=== PATIENT | female | born 1940 | race Two or more races ===

== ENCOUNTER 2020-04-01 17:24 | Observation (INO) | payer MEDICARE ==
[~2020-04-01] VITALS: Ht 165.1 cm; Wt 70.5 kg
[2020-04-01 18:31] VITALS: Ht 165.1 cm; Wt 70.5 kg
[2020-04-02] MEDS ORDERED: CATAPRES0.2 MG PO (08:38)
[2020-04-02] MEDS ORDERED: PROCHLORPERAZ5 MG/M1 PO (08:43)
[2020-04-02] MEDS ORDERED: HYDRALAZINE HC100 MG PO (08:43)
[2020-04-02] MEDS ORDERED: PROCARDIA XL60 MG PO (08:44)
[2020-04-02] MEDS ORDERED: PROTONIX40 MG PO (08:44)
[2020-04-02] MEDS ORDERED: HYDROCODON-ACE1 EAC7 PO (08:51)
[2020-04-02 09:48] VITALS: BP 186/65
== END 2020-04-02 12:00 | disposition home or self-care (01) ==
LOC: OBSVTIME 17:24 → D.M2 17:24
PROVIDERS: ADMIT Internal Medicine Nephrology; ATTEND Internal Medicine Nephrology
DX: L76.32 Postprocedural hematoma of skin and subcutaneous tissue following other procedure (principal); Y83.8 Other surgical procedures as the cause of abnormal reaction of the patient, or of later complication, without mention of misadventure at the time of the procedure; I12.0 Hypertensive chronic kidney disease with stage 5 chronic kidney disease or end stage renal disease; N18.6 End stage renal disease

== ENCOUNTER 2020-04-06 18:19 | Inpatient (IN) | payer MEDICARE ==
[~2020-04-06] VITALS: Ht 152.4 cm; Wt 64.1 kg
[~2020-04-06 18:19] MED LIST: CATAPRES0.2 MG PO; HYDRALAZINE HC100 MG PO; HYDROCODON-ACE1 EAC7 PO; PROCARDIA XL60 MG PO; PROCHLORPERAZ5 MG/M1 PO; PROTONIX40 MG PO
[2020-04-06 19:07] VITALS: BP 185/86
[2020-04-06 20:11] LABS: HEMATOCRIT 31.8 % (36.0-48.0); HEMOGLOBIN 10.2 g/dL (12-16); MCH 30.9 pg (26.0-34.0); MCHC 32.1 g/dL (31.0-37.0); MCV 96.4 fL (80.0-100.0); MEAN PLATELET VOLUME 9.6 fL (7.4-10.4); RBC 3.3 10x6/uL (4.00-5.40)
[2020-04-06 20:33] LABS: APTT 30.7 SECONDS (22.8-39.4); INR 1.04 (0.85-1.17); PROTIME 13.5 SECONDS (11.6-15.0)
--- NOTE | 2020-04-06 20:46 | NUR ---
PT ARRIVED TO FLOOR VIA STRECHER A/O X4. RR EVEN AND UNLABORED. PT UP WITH ASSIST TO BATHROOM. PT SPEAKS NO [place]. WILL GET TRANSLATER PHONE. NO S/S OF DISTRESS AT THIS TIME. BED LOW LUCIANA ALARM IN PLACE. VITALS STABLE. WILL CONTINUE TO MONITOR.
--- NOTE | 2020-04-06 22:41 | NUR ---
TRIED TO CALL PT'S [facility] FOR HISTORY. NO ANSWER LEFT MESSAGE. WILL TRY BACK.
[2020-04-07 00:24] VITALS: BP 208/81
--- NOTE | 2020-04-07 01:16 | NUR ---
2234- PT HEP DRIP STARTED AT 13ML/HR. LAC IV DC'D FFA 20G IV ESTABLISHED. PTT ORDER PUT IN FOR 399. PT VITALS STABLE NO S/S OF DISTRESS AT THIS TIME. BED LOW CALL LIGHT WITHIN REACH, LUCIANA ALSRM ON. WILL CONTINUE TO MONITOR.
[2020-04-07 02:18] VITALS: Ht 152.4 cm; Wt 64.1 kg
[2020-04-07 05:11] VITALS: BP 210/81
--- NOTE | 2020-04-07 05:55 | NUR ---
PT A/O X4. FSBS-73 GAVE PT APPLE JUICE WITH 1 PACKET OF SUGAR. WILL CONTINUE TO MONITOR.
--- NOTE | 2020-04-07 06:30 | NUR ---
CALLED LAB ABOUT PTT THAT WAS SCHEDULED AT 0400. JAVA ENGINEER JANUARY STATES IT'S RUNNING.
[2020-04-07 08:25] VITALS: BP 221/82
--- NOTE | 2020-04-07 11:25 | NUR ---
UNABLE TO AUSCULTATE FISTULA BRUIT BUT DOPPLER AT BRACHIAL, ANTICUBITAL, AND RADIAL DONE AND AREA MARKED. WILL CONT TO MONITOR.
[2020-04-07 12:37] VITALS: BP 209/83
[2020-04-07 16:20] VITALS: BP 163/62
--- NOTE | 2020-04-07 18:05 | NUR ---
PT NOT GOING HOME NOW AFTER CALL BACK FROM [facility] WITH [facility]. WILL STAY THE NIGHT AND DIALYSIS IN MORNING THEN PROBABLY HOME. FAMILY ON PHONE WITH UPDATE AND ABLE TO TRANSLATE TO PT PLAN OF CARE.
[2020-04-07 20:00] VITALS: BP 155/54
--- NOTE | 2020-04-07 20:00 | NUR ---
spoke with dr. villafana about pt being discharged tonight, pt to stay tonight and dialysize tomorrow morning before discharge.
[2020-04-08] VITALS: BP 132/52
[2020-04-08 04:00] VITALS: BP 161/61
[2020-04-08 05:03] LABS: HEMATOCRIT 29.9 % (36.0-48.0); HEMOGLOBIN 9.9 g/dL (12-16); LYMPHOCYTES 15.4 % (15-50); MCH 31.7 pg (26.0-34.0); MCHC 33.1 g/dL (31.0-37.0); MCV 95.8 fL (80.0-100.0); MEAN PLATELET VOLUME 9.5 fL (7.4-10.4); NEUTROPHILS 76.8 % (40-80); PLATELET COUNT 182 10x3/uL (130-400); RBC 3.12 10x6/uL (4.00-5.40); RDW 11.9 % (11.5-14.5); WBC 5.4 10x3/uL (4.8-10.8)
[2020-04-08 05:07] LABS: ANION GAP 8.4 mmol/L (8-16); CALCIUM 7.6 mg/dL (8.5-10.1); CARBON DIOXIDE 29.7 mmol/L (21.0-32.0); POTASSIUM - SERUM 5.1 mmol/L (3.5-5.1)
[2020-04-08 09:00] VITALS: BP 192/65
== END 2020-04-08 14:35 | disposition home or self-care (01) | DRG 919 ==
LOC: D.ER 18:19 → D.M2 19:17
PROVIDERS: Family Medicine; ADMIT Internal Medicine Nephrology; ATTEND Internal Medicine Nephrology
PROC: 5A1D70Z Performance of Urinary Filtration, Intermittent, Less than 6 Hours Per Day (ICD-10-PCS; principal; 2020-04-08)
DX: L76.32 Postprocedural hematoma of skin and subcutaneous tissue following other procedure (principal); N18.6 End stage renal disease; I12.0 Hypertensive chronic kidney disease with stage 5 chronic kidney disease or end stage renal disease; Y83.8 Other surgical procedures as the cause of abnormal reaction of the patient, or of later complication, without mention of misadventure at the time of the procedure; E11.22 Type 2 diabetes mellitus with diabetic chronic kidney disease; I25.10 Atherosclerotic heart disease of native coronary artery without angina pectoris; F03.90 Unspecified dementia, unspecified severity, without behavioral disturbance, psychotic disturbance, mood disturbance, and anxiety

== ENCOUNTER 2020-06-18 08:28 | Day surgery (SDC) | payer MEDICARE ==
[~2020-06-18] VITALS: Ht 152.4 cm; Wt 62.1 kg
[2020-06-18 09:07] LABS: BASOPHILS 0.6 % (0-2); EOSINOPHILS 7.9 % (0-7); HEMATOCRIT 42.6 % (36.0-48.0); HEMOGLOBIN 13.9 g/dL (12-16); IMMATURE GRANULOCYTES 0.8 % (0-5); LYMPHOCYTES 14.8 % (15-50); MCH 32.9 pg (26.0-34.0); MCHC 32.6 g/dL (31.0-37.0); MCV 100.7 fL (80.0-100.0); MEAN PLATELET VOLUME 9.7 fL (7.4-10.4); MONOCYTES 7.3 % (2-11); NEUTROPHILS 68.6 % (40-80); PLATELET COUNT 201 10x3/uL (130-400); RBC 4.23 10x6/uL (4.00-5.40); RDW 13.6 % (11.5-14.5); WBC 5.3 10x3/uL (4.8-10.8)
[2020-06-18 09:13] LABS: ANION GAP 11.3 mmol/L (8-16); CALCIUM 7.8 mg/dL (8.5-10.1); CARBON DIOXIDE 26.3 mmol/L (21.0-32.0); POTASSIUM - SERUM 4.6 mmol/L (3.5-5.1)
[2020-06-18 09:23] LABS: INR 0.99 (0.85-1.17); PROTIME 13.1 SECONDS (11.6-15.0)
[2020-06-18 11:57] VITALS: BP 171/66; Ht 152.4 cm; Wt 62.1 kg
[2020-06-18] MEDS ORDERED: ULTRAM50 MG PO (16:00)
--- NOTE | 2020-06-18 16:26 | NUR ---
PT AWAKENING, OPA REMOVED, SPO2 99%
--- NOTE | 2020-06-18 17:51 | NUR ---
1730 PORT FLUSHED PER PROTICAL. DRESSING CDI. INSTRUCTIONS GIVEN TO FAMILY AT BEDSIDE. PT HAS NO RWANDAN
--- NOTE | 2020-06-18 18:32 | NUR ---
1800 ASSISTED WITH GETTING DRESSED. PT ABLE TO STAND AND PIVOT INTO W/C NEEDS STAND BY ASSISTANCE TO W/C SLING MAINTAINED WITH FINGERS HIGHER THAN ELBOW. DENIES PAIN OR NAUSEA. VS STABLE
--- NOTE | 2020-06-18 19:11 | NUR ---
1710 SKIN TO BILATERAL ARMS AND LEGS AND UPPER SHOULDER AREA IS RED AND BLOCHY LOOKING, PACU STATED IT WAS A ALLERGIC REACTIONS FROM THE WIPES. NO ITCHING NOTED
--- NOTE | 2020-06-22 09:06 | OP ---
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 OPERATION PERFORMED: Implantation of Artegraft loop arteriovenous graft of the right arm between the proximal brachial artery and proximal basilic vein. SURGEON: Anita Bautista MD ANESTHESIA: Regional nerve block and TIVA per ROTARY CUTTER. REFERRING PHYSICIAN: Dr. Roy and Dr. Swan. PREOPERATIVE NOTE: Ms. Jayme Urena is a 79-year-old non-Pashto speaking lady on chronic hemodialysis with a right internal jugular tunneled dialysis catheter. She had initially successful Endo AV fistula creation in the right radial artery, but unfortunately this thrombosed. She is brought to the operating room today to implant a graft. She has rather small veins and although I plan to look for veins to make a fistula, I most likely will be doing a graft. DESCRIPTION OF PROCEDURE: Under anesthesia in supine position, the patient's right arm was prepped and draped in a sterile manner. I applied a Jennifer drain as a proximal venous tourniquet and nitroglycerin ointment to the intact skin of the arm and forearm. I examined her with Duplex ultrasound and found the cephalic vein to be quite small and the basilic vein to be potentially usable for a translocated basilic vein fistula. I did not have confidence that type of fistula would mature and elected to go ahead with implantation of an Artegraft. I made a longitudinal incision over the medial aspect of the upper arm and exposed the proximal brachial artery and proximal basilic vein. These vessels were controlled with Silastic loops. I chose a standard Artegraft and prepared it according to the medical collections specialist's instructions. It was bevelled. The artery was occluded proximally and distally and then opened and then flushed with heparinized saline and an anastomosis then performed end of graft to side of artery using running 6-0 Prolene. When completed and back bleeding was allowed and the graft was flushed with heparinized saline, we found the suture line to be hemostatic. I then made a superficial subcutaneous circular tunnel using one counter incision distally and brought the graft back to the primary operative field where it was then shortened and bevelled and the vein was occluded proximally and distally, then opened, flushed with heparinized saline. The vein has been treated off and on during the procedure with topical papaverine, yet still vein was a fairly intense spasm and ended up being a fairly small vessel we were working with. The graft was anastomosed end-to-side of vein with a running 6-0 Prolene and when completed, the occluding clamps and loops were released. Satisfactory flow developed in the new AV graft and the suture lines OPERATIVE REPORT [id number] KWASI BAILEY were both hemostatic. The wounds were irrigated with Ancef/gentamicin solution and closed without the use of drain approximating subcutaneous tissues with interrupted inverted 3-0 Vicryl and the skin was closed with a running intracuticular 4-0 Stratafix and Dermabond glue with the incisions additionally dressed with Maxorb AG and Tegaderm, and Cavilon skin prep. She was awakened and in stable condition taken to the recovery room. Blood loss during the operation was may be 10 cc, was unreplaced. Sponges, instruments, and needles were accounted for and no drain was used. The patient will be allowed to go home today and will follow up with me in my office in about 10 days. She is to keep her operative dressings intact and dry until that time. She is to continue her same medications, diet and activities and continue her same routine dialysis schedule in the interim. She is given a prescription for 20 tramadol tablets 50 mg she can take 1 or 2 p.o. q.4 hours p.r.n. pain and in addition, may take Tylenol either simultaneously or alternating with the tramadol. I am concerned that in the future this patient is at pretty high risk for developing a venous anastomotic stenosis or venous outflow compromise and this might be handled in 2 ways; first, I would strongly recommend that she have an early fistulogram done at about 4-6 weeks, assuming her graft functions well when it is accessed before that. If problems develop, she might be referred for additional surgery to extend her existing graft proximally up on to the axillary vein with a jump graft or more likely she would be treated by venous anastomotic angioplasty and stenting with additional venous outflow stenting as needed. TRANSINT:[id number] Voice Confirmation ID: [id number] DOCUMENT ID: [id number] cc: [facility] ANITA BAUTISTA MD at 0906 CC: ANN MARIE ROY and ELZA SWAN [id number] DICTATION DATE: 06/18/20 1627 GILL TENDER: 06/19/20 0001 [facility] [place] 06/18/20 [place] [id number] [place] [id number]
== END 2020-06-18 18:20 | disposition home or self-care (01) ==
LOC: D.OPS 08:28
PROVIDERS: Surgery; ATTEND Internal Medicine Nephrology
DX: N18.6 End stage renal disease (principal); Z99.2 Dependence on renal dialysis